=== PATIENT | female | born 1970 | race Caucasian/White ===

== ENCOUNTER 2016-12-18 08:20 | Emergency (ER) | payer MEDICARE, MEDICAID ==
[~2016-12-18 08:20] MED LIST: ACETAMINOPHEN325 M2 PO; ALPRAZOLAM0.5 M3 PO; AMLODIPINE BESYL5 MG PO; ANTIBIOTIC; ASPIRIN EC81 MG PO; ASPIRIN81 M1 PO; ATIVAN1 MG PO; ATORVASTATIN CA10 M1 PO; BACTRIM 400-801 TAB; BENADRYL ALLERG25 M1 PO; BENICAR; BISCOLAX10 MG PR; BLACK COHOSH; BLACK COHOSH540 M1 PO; BOOST GLUCOSE237 M1 PO; BRILINTA90 M1 PO; BUTALBITAL COM1 EAC1 PO; CARVEDILOL6.25 M1 PO; CATHFLO ACT2 MG/VIAL IV; CLEOCIN HCL150 MG PO; CLINDAMYCIN HC150 MG; CLONIDINE HCL0.1 M2 PO; COLACE100 M1 PO; COLACE100 MG PO; COREG12.5 M1 PO; COUMADIN10 M1 PO; COUMADIN2 MG PO; COUMADIN5 M1 PO; COUMADIN5 M2 PO; COUMADIN6 MG PO; COUMADIN7.5 M1 PO; COZAAR100 M1 PO; COZAAR50 M1 PO; CYCLOBENZAPRINE10 M1 PO; CYCLOBENZAPRINE5 M1 PO; EFFEXOR75 MG; FEOSOL1 TAB PO; FIORICET 50-301 EAC1 PO; FLECTOR1 EAC1 TD; FLUTICASONE PRO16 G1; FLUZONE IM; HECTOROL IV; HUMALOG MI100 UNIT/3 SQ; HUMALOG100 U/ML; HUMALOG100 U/ML SQ; HUMALOG100 UNIT/2 SQ; HUMALOG100 UNITS/; HUMALOG100 UNITS/ SC; HUMULIN R100 U/ML SQ; HYDROXYZINE HCL25 M1 PO; IBUPROFEN800 MG; IMITREX100 M2 PO; IMITREX50 M2 PO; INVANZ1 G/VIA1 IV; KEPPRA500 M3 PO; LABETALOL HCL100 M1 PO; LANTUS SOLOSTAR3 ML SQ; LANTUS100 U/ML; LANTUS100 U/ML SC; LEVAQUIN250 M3 PO; LEVEMIR FL100 UNIT/2 SC; LEVEMIR FL100 UNIT/2 SQ; LEVEMIR100 U/ML SQ; LEVEMIR100 UNITS/; LEVEMIR100 UNITS/ SC; LEXAPRO20 M2 PO; LEXAPRO20 MG PO; LIPITOR10 M1 PO; LIPITOR20 MG PO; LIQUACEL 100 LI30 ML PO; LIQUACEL LIQUI960 ML PO; LISINOPRIL10 MG PO; LISINOPRIL20 MG; LISINOPRIL20 MG PO; LOPRESSOR25 MG/TA2 PO; LOSARTAN POTASS50 M1 PO; LOVENOX40 MG/0.4 SQ; LOVENOX80 MG/0.1 SC; METOCLOPRAM5 MG/5 M2 PO; METOCLOPRAMIDE10 M2 PO; METOPROLOL TART50 M2 PO; MILK OF MA400 MG/5 M PO; MILK OF MAGNES311 MG PO; MILK OF MAGNESIA PO; MIRALAX17 G1 PO; MIRALAX17 GM PO; MUCINEX600 M1 PO; MULTIVITAMIN1 TAB PO; MUPIROCIN15 G2 TP; NEURONTIN100 MG PO; NEURONTIN300 MG PO; NITROGLYCERIN0.4 M2 SL; NORVASC10 M2 PO; NOVOLOG100 U/M SQ; NOVOLOG100 UNITS/ SC; PAIN & FEVER500 MG PO; PANTOPRAZOLE SO40 M3 PO; PERCOCET 10 MG/1 TA1 PO; PERCOCET 5-3251 EACH PO; PERCOCET 5/3251 TAB; PERCOCET 5MG/AP1 TAB PO; PERCOCET 7.5/321 TA1 PO; PLAVIX75 M1 PO; PRINIVIL20 MG PO; PROTONIX40 M2 PO; RANITIDINE HCL75 M1 PO; REGLAN10 M2 PO; RENVELA800 M1 PO; ROXICODONE5 M2 PO; SANTYL30 GM TP; SENOKOT8.6 MG PO; SILVADENE20 GM TP; SIMVASTATIN20 MG PO; SIMVASTATIN5 MG PO; SYNTHROID100 MCG PO; SYNTHROID112 MCG; SYNTHROID125 MC1 PO; SYNTHROID150 MC1 PO; SYNTHROID175 MC1 PO; SYNTHROID75 MCG PO; TOPAMAX100 M2 PO; TOPAMAX50 M3 PO; TRESIBA FL200 UNIT/1 SC; TRIAMCINOLONE A15 G4 EXT; TYLENOL325 MG PO; TYLENOL650 MG PO; VENOFER50 MG/2.5 IV; VITAMIN B 12; VITAMIN B12; VITAMIN B12-FO1 EAC1 PO; VITAMIN B12100 MCG PO; VITAMIN D31000 UNI3 PO; VITAMIN D31000 UNIT PO; VITAMIN D32000 UNI2 PO; VITAMIN D50000 UNIT PO; WARFARIN SODIU7.5 M2 PO; WOMENS MULTIPLE1 TAB PO; XANAX0.25 M1 PO; XANAX0.5 M1 PO; ZOCOR20 MG; ZOFRAN ODT4 MG PO; ZOFRAN4 M2 PO; ZYVOX600 MG; [UNRECOGNIZED DRUG - OTHER] PO; [UNRECOGNIZED DRUG - OTHER] PO; [UNRECOGNIZED DRUG - OTHER] PO; [UNRECOGNIZED DRUG - REMARK]
[2016-12-18] MEDS ORDERED: COUMADIN5 M2 PO (08:52)
[2016-12-18] MEDS ORDERED: LEXAPRO20 M2 PO (08:53)
[2016-12-18 09:19] LABS: BASO % 0.6 % (0-2); BASO ABSOLUTE COUNT 0.1 tho/cmm (0.0-0.2); EOS % 2.2 % (0-7); EOSINOPHIL ABSOLUTE COUNT 0.3 tho/cmm (0.0-0.7); HCT-HEMATOCRIT 30.5 % (34.0-49.0); HGB-HEMOGLOBIN 9.9 gm/dl (12.0-15.5); IMMATURE GRANULOCYTES ABSOLUTE 0.06 tho/cmm (0-0.03); IMMATURE GRANULOCYTES PERCENT 0.4 % (0-0.3); LYMPH % 12.2 % (20-45); LYMPH ABSOLUTE COUNT 1.6 tho/cmm (0.8-4.5); MCH (MEAN CORPUSCULAR HGB) 30.6 pg (28.0-32.0); MCHC MEAN CORPUSCULAR HGB CONC 32.5 % (32.0-36.0); MCV (MEAN CELL VOLUME) 94.1 fl (82.0-96.0); MEAN PLATELET VOLUME 9.8 cmc (9.4-12.4); MONO % 3.4 % (0-12); MONOCYTE ABSOLUTE COUNT 0.5 tho/cmm (0.0-1.2); NEUTROPHIL ABSOLUTE COUNT 10.9 tho/cmm (1.6-8.0); NEUTROPHIL-AUTOMATED 10.9 tho/cmm (1.6-8.0); NEUTROPHILS % 81.2 % (40-80); PLATELET COUNT 259 tho/cmm (150-450); RED BLOOD COUNT 3.24 mil/cmm (4.00-5.20); RED CELL DISTRIBUTION WIDTH 13.1 % (12.4-16.4); WHITE BLOOD COUNT 13.5 tho/cmm (4.0-10.0)
[2016-12-18 09:25] LABS: INR 2.9 INR (0.9-1.1); PROTHROMBIN TIME 34.5 SECONDS (9.0-13.6)
[2016-12-18 09:37] LABS: ALB/GLOB RATIO 0.8 (0.8-2.0); ALBUMIN 2.9 g/dl (3.5-5.0); ALKALINE PHOSPHATASE 137 U/L (33-138); ALT/SGPT 39 U/L (12-78); ANION GAP 17 mmol/L (0-20); AST/SGOT 20 U/L (10-40); BILIRUBIN,TOTAL 0.3 mg/dl (0-1.5); BLOOD UREA NITROGEN 60 mg/dl (6-24); CARBON DIOXIDE-VENOUS 22 mmol/L (22-32); CHLORIDE 108 mmol/l (96-110); CREATININE 7.69 mg/dl (0.50-1.10); GLUCOSE 91 mg/dL (70-110); MAGNESIUM 2.5 mg/dl (1.8-2.6); PHOSPHOROUS 4.8 mg/dl (2.5-4.9); POTASSIUM 4.1 mmol/L (3.7-5.1); SODIUM 143 mmol/L (135-145); eGFR VALUE FOR BLACK 7 mL/Min
[2016-12-18] MEDS ORDERED: COUMADIN7.5 M1 PO (14:23)
[2016-12-18] MEDS ORDERED: ZOFRAN4 M2 PO (14:36)
[2016-12-18] MEDS ORDERED: MILK OF MAGNESIA PO (14:37)
[2016-12-18] MEDS ORDERED: BISCOLAX10 MG PR (14:38)
[2016-12-18] MEDS ORDERED: VITAMIN D32000 UNI2 PO (14:42)
[2017-02-23] MEDS ORDERED: OXYCODONE HCL5 M1 PO (14:24)
[2017-02-23] MEDS ORDERED: [UNRECOGNIZED DRUG - OTHER] PO (14:27)
[2017-02-23] MEDS ORDERED: MUCINEX600 M1 PO (14:28)
[2017-02-23] MEDS ORDERED: PROTONIX40 M2 PO (14:28)
[2017-02-23] MEDS ORDERED: TRESIBA FL100 UNIT/1 SC (17:43)
[2017-02-24] MEDS ORDERED: ISOSORBIDE MONO30 M4 PO (14:45)
[2017-02-24] MEDS ORDERED: LEXAPRO20 M2 PO (14:48)
[2017-03-05] MEDS ORDERED: ATIVAN0.5 M1 PO (16:24)
[2017-03-05] MEDS ORDERED: ZOLOFT50 M1 PO (17:15)
[2017-03-07] MEDS ORDERED: HYDRALAZINE HCL25 M1 PO (15:59)
[2017-03-07] MEDS ORDERED: BYSTOLIC5 M1 PO (15:59)
== END 2016-12-18 10:53 ==
LOC: EDMED 08:20
PROVIDERS: Emergency Medicine
DX: E10.649 Type 1 diabetes mellitus with hypoglycemia without coma (principal); E10.22 Type 1 diabetes mellitus with diabetic chronic kidney disease; N18.6 End stage renal disease; E03.9 Hypothyroidism, unspecified; F32.9 Major depressive disorder, single episode, unspecified; Z99.2 Dependence on renal dialysis; Z79.4 Long term (current) use of insulin; Z79.899 Other long term (current) drug therapy; Z96.652 Presence of left artificial knee joint; Z87.891 Personal history of nicotine dependence

== ENCOUNTER 2016-12-19 08:44 | Day surgery (SDC) | payer MEDICARE, MEDICAID ==
[2017-02-23] MEDS ORDERED: OXYCODONE HCL5 M1 PO (14:24)
[2017-02-23] MEDS ORDERED: [UNRECOGNIZED DRUG - OTHER] PO (14:27)
[2017-02-23] MEDS ORDERED: PROTONIX40 M2 PO (14:28)
[2017-02-23] MEDS ORDERED: MUCINEX600 M1 PO (14:28)
[2017-02-23] MEDS ORDERED: TRESIBA FL100 UNIT/1 SC (17:43)
[2017-02-24] MEDS ORDERED: ISOSORBIDE MONO30 M4 PO (14:45)
[2017-02-24] MEDS ORDERED: LEXAPRO20 M2 PO (14:48)
[2017-03-05] MEDS ORDERED: ATIVAN0.5 M1 PO (16:24)
[2017-03-05] MEDS ORDERED: ZOLOFT50 M1 PO (17:15)
[2017-03-07] MEDS ORDERED: BYSTOLIC5 M1 PO (15:59)
[2017-03-07] MEDS ORDERED: HYDRALAZINE HCL25 M1 PO (15:59)
== END 2016-12-19 11:35 ==
LOC: RADSP 08:44 → SHSC 08:45
PROC: B51WYZZ Fluoroscopy of Dialysis Shunt/Fistula using Other Contrast (ICD-10-PCS; principal; 2016-12-19)
PROC: 037C3ZZ Dilation of Left Radial Artery, Percutaneous Approach (ICD-10-PCS; 2016-12-19)
PROC: 057F3ZZ Dilation of Left Cephalic Vein, Percutaneous Approach (ICD-10-PCS; 2016-12-19)
DX: T82.858A Stenosis of other vascular prosthetic devices, implants and grafts, initial encounter (principal); T82.898A Other specified complication of vascular prosthetic devices, implants and grafts, initial encounter; F17.210 Nicotine dependence, cigarettes, uncomplicated; I12.0 Hypertensive chronic kidney disease with stage 5 chronic kidney disease or end stage renal disease; E10.22 Type 1 diabetes mellitus with diabetic chronic kidney disease; N18.6 End stage renal disease; Z79.01 Long term (current) use of anticoagulants; Z79.4 Long term (current) use of insulin; Z79.82 Long term (current) use of aspirin; Z79.899 Other long term (current) drug therapy; Z88.1 Allergy status to other antibiotic agents; Z89.512 Acquired absence of left leg below knee; Z89.422 Acquired absence of other left toe(s); Z98.51 Tubal ligation status; Z98.890 Other specified postprocedural states; Z99.2 Dependence on renal dialysis
CPT/HCPCS: C1725; C1769; J2250; Q9967

== ENCOUNTER 2017-01-30 12:51 | Emergency (ER) | payer MEDICARE, MEDICAID ==
[2017-01-30] MEDS ORDERED: OMEPRAZOLE20 M3 PO (14:18)
[2017-01-30] MEDS ORDERED: ATORVASTATIN CA10 M1 PO (14:19)
[2017-01-30] MEDS ORDERED: ZOLOFT50 M1 PO (14:20)
[2017-01-30] MEDS ORDERED: GABAPENTIN100 M1 PO (14:21)
[2017-01-30] MEDS ORDERED: NOVOLOG FL100 UNIT/2 SC (14:23)
[2017-01-30] MEDS ORDERED: POLYETHYLENE GL17 G1 PO (14:36)
[2017-01-30] MEDS ORDERED: AZITHROMYCIN250 M1 PO (14:51)
[2017-01-30] MEDS ORDERED: VIBRAMYCIN100 M1 PO (14:57)
[2017-02-23] MEDS ORDERED: OXYCODONE HCL5 M1 PO (14:24)
[2017-02-23] MEDS ORDERED: [UNRECOGNIZED DRUG - OTHER] PO (14:27)
[2017-02-23] MEDS ORDERED: PROTONIX40 M2 PO (14:28)
[2017-02-23] MEDS ORDERED: MUCINEX600 M1 PO (14:28)
[2017-02-23] MEDS ORDERED: TRESIBA FL100 UNIT/1 SC (17:43)
[2017-02-24] MEDS ORDERED: ISOSORBIDE MONO30 M4 PO (14:45)
[2017-02-24] MEDS ORDERED: LEXAPRO20 M2 PO (14:48)
[2017-03-05] MEDS ORDERED: ATIVAN0.5 M1 PO (16:24)
[2017-03-05] MEDS ORDERED: ZOLOFT50 M1 PO (17:15)
[2017-03-07] MEDS ORDERED: BYSTOLIC5 M1 PO (15:59)
[2017-03-07] MEDS ORDERED: HYDRALAZINE HCL25 M1 PO (15:59)
== END 2017-01-30 15:08 ==
LOC: EDMED 12:51
DX: S80.811A Abrasion, right lower leg, initial encounter (principal); J40 Bronchitis, not specified as acute or chronic; E10.9 Type 1 diabetes mellitus without complications; F41.9 Anxiety disorder, unspecified; I73.9 Peripheral vascular disease, unspecified; F17.210 Nicotine dependence, cigarettes, uncomplicated; Z86.73 Personal history of transient ischemic attack (TIA), and cerebral infarction without residual deficits; Z89.512 Acquired absence of left leg below knee; Y33.XXXA Other specified events, undetermined intent, initial encounter

== ENCOUNTER 2017-04-22 20:54 | Inpatient (IN) | payer MEDICARE, MEDICAID ==
[~2017-04-22] VITALS: Ht 172.7 cm; Wt 74.5 kg
[~2017-04-22 20:54] MED LIST changes: +ATIVAN0.5 M1 PO; +AZITHROMYCIN250 M1 PO; +BYSTOLIC5 M1 PO; +GABAPENTIN100 M1 PO; +HYDRALAZINE HCL25 M1 PO; +ISOSORBIDE MONO30 M4 PO; +NOVOLOG FL100 UNIT/2 SC; +OMEPRAZOLE20 M3 PO; +OXYCODONE HCL5 M1 PO; +POLYETHYLENE GL17 G1 PO; +TRESIBA FL100 UNIT/1 SC; +VIBRAMYCIN100 M1 PO; +ZOLOFT50 M1 PO
[2017-04-22 21:29] LABS: BASO % 0.6 % (0-2); BASO ABSOLUTE COUNT 0.1 tho/cmm (0.0-0.2); EOS % 0.7 % (0-7); EOSINOPHIL ABSOLUTE COUNT 0.1 tho/cmm (0.0-0.7); HCT-HEMATOCRIT 38.7 % (34.0-49.0); HGB-HEMOGLOBIN 12.3 gm/dl (12.0-15.5); IMMATURE GRANULOCYTES ABSOLUTE 0.03 tho/cmm (0-0.03); IMMATURE GRANULOCYTES PERCENT 0.3 % (0-0.3); LYMPH % 3.6 % (20-45); LYMPH ABSOLUTE COUNT 0.4 tho/cmm (0.8-4.5); MCH (MEAN CORPUSCULAR HGB) 30.9 pg (28.0-32.0); MCHC MEAN CORPUSCULAR HGB CONC 31.8 % (32.0-36.0); MCV (MEAN CELL VOLUME) 97.2 fl (82.0-96.0); MEAN PLATELET VOLUME 9.5 cmc (9.4-12.4); MONO % 2.8 % (0-12); MONOCYTE ABSOLUTE COUNT 0.3 tho/cmm (0.0-1.2); NEUTROPHIL ABSOLUTE COUNT 9.1 tho/cmm (1.6-8.0); NEUTROPHIL-AUTOMATED 9.1 tho/cmm (1.6-8.0); PLATELET COUNT 240 tho/cmm (150-450); RED BLOOD COUNT 3.98 mil/cmm (4.00-5.20); RED CELL DISTRIBUTION WIDTH 15.7 % (12.4-16.4); WHITE BLOOD COUNT 9.9 tho/cmm (4.0-10.0)
[2017-04-22 21:31] LABS: PROTHROMBIN TIME 24.2 SECONDS (9.0-13.6)
[2017-04-22 21:56] LABS: ALB/GLOB RATIO 0.9 (0.8-2.0); ALBUMIN 3.2 g/dl (3.5-5.0); ALKALINE PHOSPHATASE 181 U/L (33-138); ALT/SGPT 132 U/L (12-78); ANION GAP 17 mmol/L (0-20); AST/SGOT 178 U/L (10-40); BILIRUBIN,TOTAL 0.6 mg/dl (0-1.5); BLOOD UREA NITROGEN 63 mg/dl (6-24); CALCIUM 8.8 mg/dl (8.5-10.5); CARBON DIOXIDE-VENOUS 20 mmol/L (22-32); CHLORIDE 103 mmol/l (96-110); CREATININE 8.76 mg/dl (0.50-1.10); GLUCOSE 245 mg/dL (70-110); POTASSIUM 4.3 mmol/L (3.7-5.1); SODIUM 136 mmol/L (135-145); eGFR VALUE FOR BLACK 6 mL/Min
[2017-04-22 21:57] LABS: PROCALCITONIN 6.81 ng/ml (0.05-0.09)
[2017-04-22 22:00] LABS: URINE BILIRUBIN NEGATIVE (NEG); URINE BLOOD LARGE (NEG); URINE GLUCOSE (UA) LARGE (NEG); URINE KETONE NEGATIVE (NEG); URINE LEUKOCYTE ESTERASE POSITIVE (NEG); URINE NITRITE NEGATIVE (NEG); URINE PROTEIN LARGE (NEG); URINE SPECIFIC GRAVITY 1.015 (1.003-1.030)
[2017-04-22 22:01] LABS: URINE APPEARANCE CLOUDY; URINE COLOR YELLOW
[2017-04-22 22:05] LABS: URINE EPITHELIAL CELLS 20-25 /[HPF] (0-10); URINE OTHER VOLUME 1 ML
[2017-04-22 22:06] LABS: URINE RBC 30-40 /[HPF] (0-5)
[2017-04-24 11:34] LABS: BASO % 0.8 % (0-2); BASO ABSOLUTE COUNT 0.1 tho/cmm (0.0-0.2); EOS % 2.3 % (0-7); EOSINOPHIL ABSOLUTE COUNT 0.2 tho/cmm (0.0-0.7); HCT-HEMATOCRIT 36.1 % (34.0-49.0); HGB-HEMOGLOBIN 11.6 gm/dl (12.0-15.5); IMMATURE GRANULOCYTES ABSOLUTE 0.01 tho/cmm (0-0.03); IMMATURE GRANULOCYTES PERCENT 0.1 % (0-0.3); LYMPH % 14.8 % (20-45); LYMPH ABSOLUTE COUNT 1.1 tho/cmm (0.8-4.5); MCH (MEAN CORPUSCULAR HGB) 30.6 pg (28.0-32.0); MCHC MEAN CORPUSCULAR HGB CONC 32.1 % (32.0-36.0); MCV (MEAN CELL VOLUME) 95.3 fl (82.0-96.0); MEAN PLATELET VOLUME 9.7 cmc (9.4-12.4); MONO % 9.7 % (0-12); MONOCYTE ABSOLUTE COUNT 0.7 tho/cmm (0.0-1.2); NEUTROPHIL ABSOLUTE COUNT 5.4 tho/cmm (1.6-8.0); NEUTROPHIL-AUTOMATED 5.4 tho/cmm (1.6-8.0); NEUTROPHILS % 72.3 % (40-80); PLATELET COUNT 184 tho/cmm (150-450); RED BLOOD COUNT 3.79 mil/cmm (4.00-5.20); RED CELL DISTRIBUTION WIDTH 15.4 % (12.4-16.4); WHITE BLOOD COUNT 7.4 tho/cmm (4.0-10.0)
[2017-04-24 11:48] LABS: ANION GAP 17 mmol/L (0-20); BLOOD UREA NITROGEN 37 mg/dl (6-24); CALCIUM 9.1 mg/dl (8.5-10.5); CARBON DIOXIDE-VENOUS 26 mmol/L (22-32); CHLORIDE 97 mmol/l (96-110); CREATININE 6.58 mg/dl (0.50-1.10); GLUCOSE 224 mg/dL (70-110); POTASSIUM 4.8 mmol/L (3.7-5.1); SODIUM 135 mmol/L (135-145); eGFR VALUE FOR BLACK 8 mL/Min
[2017-04-24 16:21] LABS: INR 2.9 INR (0.9-1.1); PROTHROMBIN TIME 35.8 SECONDS (9.0-13.6)
--- NOTE | 2017-04-24 21:33 | NUR ---
VN ROUNDING DEFERRED PATIENT IS SLEEPING.
[2017-04-25 07:44] LABS: PROTHROMBIN TIME 36.7 SECONDS (9.0-13.6)
[2017-04-25 07:52] LABS: BASO % 1.1 % (0-2); BASO ABSOLUTE COUNT 0.1 tho/cmm (0.0-0.2); EOS % 1.6 % (0-7); EOSINOPHIL ABSOLUTE COUNT 0.2 tho/cmm (0.0-0.7); HCT-HEMATOCRIT 35.9 % (34.0-49.0); HGB-HEMOGLOBIN 11.5 gm/dl (12.0-15.5); IMMATURE GRANULOCYTES ABSOLUTE 0.03 tho/cmm (0-0.03); IMMATURE GRANULOCYTES PERCENT 0.3 % (0-0.3); LYMPH % 10.9 % (20-45); LYMPH ABSOLUTE COUNT 1.1 tho/cmm (0.8-4.5); MCH (MEAN CORPUSCULAR HGB) 30.2 pg (28.0-32.0); MCV (MEAN CELL VOLUME) 94.2 fl (82.0-96.0); MEAN PLATELET VOLUME 10.5 cmc (9.4-12.4); MONO % 6.6 % (0-12); MONOCYTE ABSOLUTE COUNT 0.7 tho/cmm (0.0-1.2); NEUTROPHIL ABSOLUTE COUNT 8.1 tho/cmm (1.6-8.0); NEUTROPHIL-AUTOMATED 8.1 tho/cmm (1.6-8.0); NEUTROPHILS % 79.5 % (40-80); PLATELET COUNT 160 tho/cmm (150-450); RED BLOOD COUNT 3.81 mil/cmm (4.00-5.20); RED CELL DISTRIBUTION WIDTH 15.2 % (12.4-16.4); WHITE BLOOD COUNT 10.2 tho/cmm (4.0-10.0)
[2017-04-25 07:57] LABS: BLOOD UREA NITROGEN 49 mg/dl (6-24); CALCIUM 8.7 mg/dl (8.5-10.5); CARBON DIOXIDE-VENOUS 23 mmol/L (22-32); CHLORIDE 98 mmol/l (96-110); GLUCOSE 261 mg/dL (70-110); SODIUM 131 mmol/L (135-145); eGFR VALUE FOR BLACK 6 mL/Min
[2017-04-25 08:02] LABS: ANION GAP 16 mmol/L (0-20); CREATININE 8.23 mg/dl (0.50-1.10); POTASSIUM 5.6 mmol/L (3.7-5.1)
[2017-04-25 08:24] LABS: ABG CO2 ARTERIAL 23 mmol/L (21-27); ARTERIAL BLD GAS O2 SATURATION 92 % (95-98); ARTERIAL BLOOD GAS PCO2 32 mmHg (32-45); ARTERIAL PO2 67 mmHg (70-100); BICARBONATE 22 mmol/L (21-28); BLOOD GAS BASE EXCESS -1 mM/L (-/+3); PH 7.44 Units (7.35-7.45)
[2017-04-25 13:30] LABS: INR 2.4 INR (0.9-1.1)
[2017-04-25 13:33] LABS: PROTHROMBIN TIME 29.2 SECONDS (9.0-13.6)
--- NOTE | 2017-04-25 15:16 | NUR ---
[facility] CARE NOTE @1247: ATTEMPTED TO VISIT W/ PT-NO RESPONSE. APPEARS TO BE RESTING AFTER RETURNING FROM PROCEDURE IN I.R. PER NURSING, PT HAS BEEN MORE LETHARGIC TODAY. REFRIGERATION TECH HAD BEEN CALLED THIS AM, D/T TEMP AND HI BP'S. WILL CONTINUE TO MONITOR. ELECTRONIC CHART REVIEWED.
[2017-04-26 07:49] LABS: INR 2.3 INR (0.9-1.1)
--- NOTE | 2017-04-26 20:14 | NUR ---
VIRTUAL CARE NOTE: PT. SLEEPING ASSESSMENT DEFERRED.
[2017-04-27 05:48] LABS: BASO % 1.9 % (0-2); BASO ABSOLUTE COUNT 0.2 tho/cmm (0.0-0.2); EOS % 7.4 % (0-7); EOSINOPHIL ABSOLUTE COUNT 0.6 tho/cmm (0.0-0.7); HCT-HEMATOCRIT 33.7 % (34.0-49.0); HGB-HEMOGLOBIN 10.7 gm/dl (12.0-15.5); IMMATURE GRANULOCYTES ABSOLUTE 0.07 tho/cmm (0-0.03); IMMATURE GRANULOCYTES PERCENT 0.8 % (0-0.3); LYMPH % 29.5 % (20-45); LYMPH ABSOLUTE COUNT 2.5 tho/cmm (0.8-4.5); MCH (MEAN CORPUSCULAR HGB) 29.7 pg (28.0-32.0); MCHC MEAN CORPUSCULAR HGB CONC 31.8 % (32.0-36.0); MCV (MEAN CELL VOLUME) 93.6 fl (82.0-96.0); MONO % 11.8 % (0-12); NEUTROPHIL ABSOLUTE COUNT 4.1 tho/cmm (1.6-8.0); NEUTROPHIL-AUTOMATED 4.1 tho/cmm (1.6-8.0); NEUTROPHILS % 48.6 % (40-80); PLATELET COUNT 175 tho/cmm (150-450); RED CELL DISTRIBUTION WIDTH 15.2 % (12.4-16.4); WHITE BLOOD COUNT 8.4 tho/cmm (4.0-10.0)
[2017-04-27 06:09] LABS: ANION GAP 13 mmol/L (0-20); BLOOD UREA NITROGEN 43 mg/dl (6-24); CALCIUM 9.1 mg/dl (8.5-10.5); CARBON DIOXIDE-VENOUS 26 mmol/L (22-32); CHLORIDE 100 mmol/l (96-110); CREATININE 7.04 mg/dl (0.50-1.10); POTASSIUM 4.2 mmol/L (3.7-5.1); SODIUM 135 mmol/L (135-145); eGFR VALUE FOR BLACK 7 mL/Min
[2017-04-27 06:14] LABS: C-REACTIVE PROTEIN 21.9 mg/dl (0-0.9); GLUCOSE 50 mg/dL (70-110)
[2017-04-27 06:16] LABS: INR 1.7 INR (0.9-1.1); PROTHROMBIN TIME 20.2 SECONDS (9.0-13.6)
[2017-04-27 08:03] LABS: PROCALCITONIN 8.45 ng/ml (0.05-0.09)
--- NOTE | 2017-04-28 | NUR ---
VIRTUAL CARE NOTE: ASSESSMENT DEFERRED, PT. SLEEPING.
[2017-04-28 05:58] LABS: INR 1.3 INR (0.9-1.1)
[2017-04-28 06:14] LABS: C-REACTIVE PROTEIN 12.9 mg/dl (0-0.9)
[2017-04-28 06:18] LABS: PROTHROMBIN TIME 15.5 SECONDS (9.0-13.6)
[2017-04-28 06:25] LABS: BASO % 1.6 % (0-2); BASO ABSOLUTE COUNT 0.2 tho/cmm (0.0-0.2); EOS % 7.5 % (0-7); EOSINOPHIL ABSOLUTE COUNT 0.7 tho/cmm (0.0-0.7); HGB-HEMOGLOBIN 10.5 gm/dl (12.0-15.5); IMMATURE GRANULOCYTES ABSOLUTE 0.08 tho/cmm (0-0.03); IMMATURE GRANULOCYTES PERCENT 0.9 % (0-0.3); LYMPH % 27.4 % (20-45); LYMPH ABSOLUTE COUNT 2.6 tho/cmm (0.8-4.5); MCH (MEAN CORPUSCULAR HGB) 30.3 pg (28.0-32.0); MCHC MEAN CORPUSCULAR HGB CONC 32.8 % (32.0-36.0); MCV (MEAN CELL VOLUME) 92.2 fl (82.0-96.0); MEAN PLATELET VOLUME 10.9 cmc (9.4-12.4); MONO % 12.2 % (0-12); MONOCYTE ABSOLUTE COUNT 1.1 tho/cmm (0.0-1.2); NEUTROPHIL ABSOLUTE COUNT 4.7 tho/cmm (1.6-8.0); NEUTROPHIL-AUTOMATED 4.7 tho/cmm (1.6-8.0); NEUTROPHILS % 50.4 % (40-80); PLATELET COUNT 246 tho/cmm (150-450); RED BLOOD COUNT 3.47 mil/cmm (4.00-5.20); WHITE BLOOD COUNT 9.3 tho/cmm (4.0-10.0)
[2017-04-28 06:44] LABS: PROCALCITONIN 5.07 ng/ml (0.05-0.09)
--- NOTE | 2017-04-28 20:42 | NUR ---
VN/LEADER ROUNDING-PATIENT LAYING IN BED WITH VISITOR AT BEDSIDE. PATIENT/VISITOR TOLD ME SHE HAS REMOVED THE BANDAID FROM THE HEMOCATH SITE AND SCRATCHING IT SO IT IS BLEEDING SOME. ALSO THAT HER LEFT ARM WHERE FISTULA IS IS HURTING SO SHE WOULD LIKE SOME TYLENOL. OTHERWISE NO NEEDS OR QUESTIONS.
[2017-04-29 06:39] LABS: INR 1.2 INR (0.9-1.1); PROTHROMBIN TIME 14.5 SECONDS (9.0-13.6)
[2017-04-29 06:59] LABS: C-REACTIVE PROTEIN 8.8 mg/dl (0-0.9)
[2017-04-29 07:16] LABS: BASO % 2.2 % (0-2); BASO ABSOLUTE COUNT 0.2 tho/cmm (0.0-0.2); EOS % 7.8 % (0-7); EOSINOPHIL ABSOLUTE COUNT 0.7 tho/cmm (0.0-0.7); HCT-HEMATOCRIT 33.4 % (34.0-49.0); HGB-HEMOGLOBIN 10.8 gm/dl (12.0-15.5); IMMATURE GRANULOCYTES ABSOLUTE 0.14 tho/cmm (0-0.03); IMMATURE GRANULOCYTES PERCENT 1.5 % (0-0.3); LYMPH % 31.4 % (20-45); LYMPH ABSOLUTE COUNT 2.9 tho/cmm (0.8-4.5); MCH (MEAN CORPUSCULAR HGB) 30.1 pg (28.0-32.0); MCHC MEAN CORPUSCULAR HGB CONC 32.3 % (32.0-36.0); MEAN PLATELET VOLUME 10.3 cmc (9.4-12.4); MONO % 9.1 % (0-12); MONOCYTE ABSOLUTE COUNT 0.9 tho/cmm (0.0-1.2); NEUTROPHIL ABSOLUTE COUNT 4.5 tho/cmm (1.6-8.0); NEUTROPHIL-AUTOMATED 4.5 tho/cmm (1.6-8.0); RED BLOOD COUNT 3.59 mil/cmm (4.00-5.20); RED CELL DISTRIBUTION WIDTH 15.2 % (12.4-16.4); WHITE BLOOD COUNT 9.3 tho/cmm (4.0-10.0)
[2017-04-29 07:23] LABS: PLATELET COUNT 378 tho/cmm (150-450)
[2017-04-29 07:49] LABS: PROCALCITONIN 3.51 ng/ml (0.05-0.09)
--- NOTE | 2017-04-29 21:41 | NUR ---
VN/LEADER ROUNDING-PATIENT LAYING IN BED AND STATES PAIN IS STAYING CONTROLLED. THE NURSE IS GETTING READY TO BRING IN A SNACK FOR HER. THE PATIENT SAID THE CALL LIGHTS WERE ANSWERED A LITTLE SLOW TODAY BUT OTHERWISE SHE HAS HAD SOME GOOD NURSES DURING HER STAY HERE. PLANS FOR DISCHARGE TOMORROW AFTER DIALYSIS. SHE PLANS TO STAY WITH HER BOYFRIEND SHE SAID HE TAKES CARE OF HER. NO FURTHER QUESTIONS OR CONCERNS AT THIS TIME
[2017-04-30 06:14] LABS: INR 1.5 INR (0.9-1.1); PROTHROMBIN TIME 17.3 SECONDS (9.0-13.6)
[2017-04-30 06:20] LABS: BASO % 1.5 % (0-2); BASO ABSOLUTE COUNT 0.2 tho/cmm (0.0-0.2); EOS % 5.7 % (0-7); EOSINOPHIL ABSOLUTE COUNT 0.6 tho/cmm (0.0-0.7); HCT-HEMATOCRIT 31.9 % (34.0-49.0); HGB-HEMOGLOBIN 10.4 gm/dl (12.0-15.5); IMMATURE GRANULOCYTES ABSOLUTE 0.15 tho/cmm (0-0.03); IMMATURE GRANULOCYTES PERCENT 1.4 % (0-0.3); LYMPH % 27.4 % (20-45); MCH (MEAN CORPUSCULAR HGB) 30.3 pg (28.0-32.0); MCHC MEAN CORPUSCULAR HGB CONC 32.6 % (32.0-36.0); MEAN PLATELET VOLUME 9.7 cmc (9.4-12.4); MONO % 6.1 % (0-12); MONOCYTE ABSOLUTE COUNT 0.7 tho/cmm (0.0-1.2); NEUTROPHIL ABSOLUTE COUNT 6.3 tho/cmm (1.6-8.0); NEUTROPHIL-AUTOMATED 6.3 tho/cmm (1.6-8.0); NEUTROPHILS % 57.9 % (40-80); PLATELET COUNT 399 tho/cmm (150-450); RED BLOOD COUNT 3.43 mil/cmm (4.00-5.20); RED CELL DISTRIBUTION WIDTH 15.6 % (12.4-16.4); WHITE BLOOD COUNT 10.9 tho/cmm (4.0-10.0)
[2017-04-30 06:23] LABS: C-REACTIVE PROTEIN 5.5 mg/dl (0-0.9)
[2017-04-30 07:14] LABS: PROCALCITONIN 2.42 ng/ml (0.05-0.09)
[2017-04-30] MEDS ORDERED: CEFAZOLIN2 GM/100 M IV (15:50)
[2017-04-30] MEDS ORDERED: CEFAZOLIN IV (15:52)
[2017-04-30] MEDS ORDERED: SENOKOT-S TABL1 EACH PO (15:54)
== END 2017-04-30 17:25 | disposition home health service (06) | DRG 314 ==
LOC: EDMED → EDBD 20:54 → EDMED 20:54 → EMR2 23:42 → PCUA 23:42 → 5WD 23:42 → PCUA 04-23 01:55 → 5WD 04-24 12:10
PROVIDERS: Emergency Medicine; Family Medicine; Hospitalist; Internal Medicine; Internal Medicine Infectious Disease; Physician Assistant; Student in an Organized Health Care Education/Training Program; ADMIT Hospitalist
PROC: 5A1D60Z (ICD-10-PCS; 2017-04-23)
PROC: 0JPTXXZ Removal of Tunneled Vascular Access Device from Trunk Subcutaneous Tissue and Fascia, External Approach (ICD-10-PCS; principal; 2017-04-25)
PROC: 05PYX3Z Removal of Infusion Device from Upper Vein, External Approach (ICD-10-PCS; 2017-04-25)
PROC: 30233N1 Transfusion of Nonautologous Red Blood Cells into Peripheral Vein, Percutaneous Approach (ICD-10-PCS; 2017-04-25)
PROC: 5A09357 Assistance with Respiratory Ventilation, Less than 24 Consecutive Hours, Continuous Positive Airway Pressure (ICD-10-PCS; 2017-04-25)
DX: T82.7XXA Infection and inflammatory reaction due to other cardiac and vascular devices, implants and grafts, initial encounter (principal); A41.89 Other specified sepsis; N18.6 End stage renal disease; G93.40 Encephalopathy, unspecified; I12.0 Hypertensive chronic kidney disease with stage 5 chronic kidney disease or end stage renal disease; R65.20 Severe sepsis without septic shock; N25.0 Renal osteodystrophy; E10.40 Type 1 diabetes mellitus with diabetic neuropathy, unspecified; E10.21 Type 1 diabetes mellitus with diabetic nephropathy; I25.10 Atherosclerotic heart disease of native coronary artery without angina pectoris; E10.22 Type 1 diabetes mellitus with diabetic chronic kidney disease; E10.319 Type 1 diabetes mellitus with unspecified diabetic retinopathy without macular edema; E10.51 Type 1 diabetes mellitus with diabetic peripheral angiopathy without gangrene; E03.9 Hypothyroidism, unspecified; D63.1 Anemia in chronic kidney disease; Z86.73 Personal history of transient ischemic attack (TIA), and cerebral infarction without residual deficits; Z79.01 Long term (current) use of anticoagulants; Z79.4 Long term (current) use of insulin; Z88.1 Allergy status to other antibiotic agents; R74.0 Nonspecific elevation of levels of transaminase and lactic acid dehydrogenase [LDH]; Z89.512 Acquired absence of left leg below knee; G89.29 Other chronic pain; R07.89 Other chest pain
CPT/HCPCS: J0360; J0690; J0885; J1815; J2020; J2185; J2501; J2543; J7030; P9017; P9612